=== PATIENT | male | born 1955 | race Caucasian/White ===

== ENCOUNTER 2024-08-24 08:31 | Day surgery (SDC) | payer BC ==
[~2024-08-24] VITALS: Ht 170.2 cm; Wt 83.2 kg
[2024-08-24] MEDS: LIDOCAINE 3.5 % 1ML OPHTH TOPICAL GEL OU ONE (07:00)
[2024-08-24] MEDS: OFLOXACIN 0.3 % (OCUFLOX) OPTH SOL 5ML OS ONE (07:00)
[~2024-08-24 08:31] MED LIST: AMLO2.5T3 PO; FLUTISP NARES; METO1TAB7 PO; PANT40TA29 PO; PHENYLEPHRINE 10% OPHTH SOL 5ML OS PRN; ROSU40TA81 PO; TAMS1CAP17 PO; UBRO50TA PO
[2024-08-24] MEDS ORDERED: ASPI81CH33 PO (10:01)
[2024-08-24] MEDS: PHENYLEPHRINE 2.5% OPHTH SOL 2ML OS SCH (10:06)
[2024-08-24] MEDS: CYCLOPENTOLATE 1% OPHTH SOLN 2ML BTL OS SCH (10:06)
[2024-08-24] MEDS: TROPICAMIDE 1% OPHTH SOLN 15ML OS SCH (10:06)
[2024-08-24] MEDS ORDERED: fentaNYL 100 MCG/2 ML INJECTION As Ordered ONE (10:33)
[2024-08-24] MEDS ORDERED: MIDAZOLAM INJ 2MG/2ML VIAL As Ordered ONE (10:33)
[2024-08-24] MEDS: CEFUROXIME 1MG/0.1ML INTRACAMERAL INJ As Ordered ONE (10:57)
[2024-08-24] MEDS: BSS IRRIG/VANCO(10MG)/TOBRA(5MG)/EPINEPH(1:1000-0.5CC)500ML BAG-ORONLY As Ordered ONE (10:57)
[2024-08-24] MEDS: LIDOCAINE 1% SDV 5ML VIAL As Ordered ONE (10:57)
[2024-08-24 11:10] VITALS: BP 120/68; TEMP 97.1; O2SAT 96
== END 2024-08-24 11:25 | disposition home or self-care (01) ==
LOC: M SDC 08:31
PROVIDERS: ATTEND Ophthalmology
DX: H25.12 Age-related nuclear cataract, left eye (principal); H57.03 Miosis; H21.81 Floppy iris syndrome; I25.10 Atherosclerotic heart disease of native coronary artery without angina pectoris; I10 Essential (primary) hypertension; Z95.5 Presence of coronary angioplasty implant and graft; Z88.5 Allergy status to narcotic agent
CPT/HCPCS: 66982; J0697; J2250; J3010; V2632

== ENCOUNTER 2024-09-07 07:50 | Day surgery (SDC) | payer BC ==
[~2024-09-07] VITALS: Ht 170.2 cm; Wt 82.7 kg
[~2024-09-07 07:50] MED LIST changes: +ASPI81CH33 PO; +PHENYLEPHRINE 10% OPHTH SOL 5ML OD PRN; -PHENYLEPHRINE 10% OPHTH SOL 5ML OS PRN
[2024-09-07] MEDS ORDERED: MIDAZOLAM INJ 2MG/2ML VIAL As Ordered ONE (08:07)
[2024-09-07] MEDS ORDERED: fentaNYL 100 MCG/2 ML INJECTION As Ordered ONE (08:08)
[2024-09-07] MEDS: LIDOCAINE 3.5 % 1ML OPHTH TOPICAL GEL OU ONE (08:23)
[2024-09-07] MEDS: OFLOXACIN 0.3 % (OCUFLOX) OPTH SOL 5ML OD ONE (08:23)
[2024-09-07] MEDS: TROPICAMIDE 1% OPHTH SOLN 15ML OD SCH (08:23)
[2024-09-07] MEDS: PHENYLEPHRINE 2.5% OPHTH SOL 2ML OD SCH (08:23)
[2024-09-07] MEDS: CYCLOPENTOLATE 1% OPHTH SOLN 2ML BTL OD SCH (08:23)
[2024-09-07] MEDS: CEFUROXIME 1MG/0.1ML INTRACAMERAL INJ As Ordered ONE (09:14)
[2024-09-07] MEDS: BSS IRRIG/VANCO(10MG)/TOBRA(5MG)/EPINEPH(1:1000-0.5CC)500ML BAG-ORONLY As Ordered ONE (09:14)
[2024-09-07] MEDS: LIDOCAINE 1% SDV 5ML VIAL As Ordered ONE (09:14)
[2024-09-07 09:20] VITALS: BP 136/83; TEMP 97.2; O2SAT 96
== END 2024-09-07 09:38 | disposition home or self-care (01) ==
LOC: M SDC 07:50
PROVIDERS: ATTEND Ophthalmology
DX: H25.9 Unspecified age-related cataract (principal); I25.10 Atherosclerotic heart disease of native coronary artery without angina pectoris; I10 Essential (primary) hypertension; E78.00 Pure hypercholesterolemia, unspecified; C61 Malignant neoplasm of prostate; Z95.5 Presence of coronary angioplasty implant and graft; Z79.899 Other long term (current) drug therapy; Z79.82 Long term (current) use of aspirin; Z90.49 Acquired absence of other specified parts of digestive tract; Z98.42 Cataract extraction status, left eye
CPT/HCPCS: 66984; J0697; J2250; J3010; V2632